=== PATIENT | male | born 1955 | race Caucasian/White ===

== ENCOUNTER 2019-11-20 01:51 | Day surgery (SDC) | payer BC, SELFPAY ==
[2019-11-13 14:16] VITALS: BMI 35.9
[2019-11-20 07:55] VITALS: BP 172/88; PULSE 76; RESP 16; TEMP 37.1; O2SAT 97
--- NOTE | 2019-11-20 07:57 | WPDANESEPPF ---
Anes - Initial Pre Proc Eval Procedure: Operation Date: 11/20/19 09:00 Proposed Procedures p Screening Colonoscopy - Alberto Richards MD Date/Time: 11/20/19 07:57 Surgeon: Alberto Richards MD Pre Op Diagnosis: Neoplasm Screening Patient Data Age: 63 Gender: M Height: 6 ft Weight: 120 kg Allergies Allergy/AdvReac Type Severity Reaction Status Date / Time lisinopril AdvReac Severe Anaphylaxis Verified 11/20/19 07:51 Home Medications Medication Instructions Recorded Confirmed Type aspirin 81 mg tablet,delayed 81 mg PO DAILY 08/06/19 11/20/19 History release blood sugar diagnostic #10 each 08/06/19 11/06/19 History lancets 28 gauge #25 each 08/06/19 11/06/19 History losartan 50 mg tablet 50 mg PO DAILY 08/06/19 11/20/19 History metformin 500 mg tablet 500 mg PO BID #180 tablet 08/06/19 11/20/19 Rx Patient hx anesthesia problems: none Family hx anesthesia problems: none PMFSH Past Medical History Medical History (Updated 11/06/19 @ 07:51 by Shannon Loving NP) Allergies Elevated PSA Hypertension Type 2 diabetes mellitus Family History Family History (Updated 08/05/19 @ 15:48 by Minerva Gloria CMA) Father Malignant neoplasm of prostate Heart attack Social History Social History Smoking status: Former smoker Smoking end date: 09/25/02 Alcohol intake: current Substance use: never Anes - Eval Final PreProcedure Day of Procedure 11/20/19 07:57 Patient weight: obese Heart: regular rate and rhythm Lungs: clear to auscultation Airway: Mallampati scale class II Neurological: alert and oriented Last oral intake: >/= 8 hours ASA classification: III Emergent: no Anesthetic plan: proceed Anesthesia type and monitoring: general GIVS and standard monitoring Informed Consent: The patient's anesthetic plan and its attendant risks and benefits were discussed with the patient/family/POA. Questions were solicited and answers provided to the satisfaction of the patient/family/POA.
[2019-11-20] MEDS: LACTATED RINGERS 1,000 ML 150 ML IV CONT (08:07)
[2019-11-20 08:24] LABS: Glucose Point of Care 128 (65-105)
--- NOTE | 2019-11-20 08:26 | PM.HPGS ---
History of Present Illness History of Present Illness Consent: Risks, benefits, and alternatives have been discussed and questions answered. Patient agrees to proceed with procedure. Chief complaint: Neoplasm Screening Narrative: Cristi Elias is a 63 year old W male referred for screening colonoscopy. Patient's last colonoscopy was over 10 years ago. He had mild diverticular disease. Patient is asymptomatic there is no family history of colon cancer. [facility] Past Medical History Medical History Allergies Elevated PSA Hypertension Type 2 diabetes mellitus Family History Family History Father Malignant neoplasm of prostate Heart attack Social History Social History Smoking status: Former smoker Smoking end date: 09/25/02 Alcohol intake: current Substance use: never Meds Home Medications and Allergies Home Medications Medication Instructions Recorded Confirmed Type aspirin 81 mg tablet,delayed 81 mg PO DAILY 08/06/19 11/20/19 History release blood sugar diagnostic #10 each 08/06/19 11/06/19 History lancets 28 gauge #25 each 08/06/19 11/06/19 History losartan 50 mg tablet 50 mg PO DAILY 08/06/19 11/20/19 History metformin 500 mg tablet 500 mg PO BID #180 tablet 08/06/19 11/20/19 Rx Allergies Allergy/AdvReac Type Severity Reaction Status Date / Time lisinopril AdvReac Severe Anaphylaxis Verified 11/20/19 07:51 Vital Signs Vital Signs - 24 hr 11/20/19 07:55 Temperature 37.1 C Pulse Rate 76 Respiratory Rate 16 Blood Pressure 172/88 H Pulse Oximetry 97 Exam Const: Orientation/consciousness: patient oriented x3 Resp: Auscultation: clear to auscultation bilaterally Cardio: Rate: regular rate Rhythm: regular rhythm Heart sounds: no murmurs GI: GI Palp: Yes Soft to palpation, No Tenderness to palpation present (GI), Yes No hepatosplenomegaly present and No Palpable mass present Auscultation: normal bowel sounds Neuro: General: patient oriented x3 and no focal motor deficits Extrem: General: no pedal edema Assessment and Plan Additional Plan Screening colonoscopy in average risk patient
[2019-11-20 09:00] VITALS: BP 122/69; PULSE 72; RESP 20
[2019-11-20 09:10] VITALS: BP 124/65; PULSE 69; RESP 20; O2SAT 97
[2019-11-20 09:16] VITALS: BP 121/83; PULSE 69; O2SAT 96
[2019-11-20 09:20] VITALS: BP 121/83; PULSE 69; RESP 22
== END 2019-11-20 09:27 | disposition home or self-care (01) ==
PROVIDERS: PCP Internal Medicine; Visit Provider Internal Medicine Gastroenterology
PROC: 0DJD8ZZ Inspection of Lower Intestinal Tract, Via Natural or Artificial Opening Endoscopic (ICD-10-PCS; CPT 45378; principal; 2019-11-20 09:00)
DX: Z12.11 Encounter for screening for malignant neoplasm of colon (principal); K63.5 Polyp of colon; K64.8 Other hemorrhoids; K64.4 Residual hemorrhoidal skin tags; K57.30 Diverticulosis of large intestine without perforation or abscess without bleeding; I10 Essential (primary) hypertension; E11.9 Type 2 diabetes mellitus without complications; Z79.84 Long term (current) use of oral hypoglycemic drugs; Z79.82 Long term (current) use of aspirin; E66.9 Obesity, unspecified; Z68.36 Body mass index [BMI] 36.0-36.9, adult; Z87.891 Personal history of nicotine dependence
CPT/HCPCS: 45385; 88305; J7120

== ENCOUNTER 2022-03-04 17:58 | Emergency (ER) | payer MEDICARE, SELFPAY ==
[2022-03-04 18:01] VITALS: BP 142/93; PULSE 74; RESP 14; TEMP 36; O2SAT 99
--- NOTE | 2022-03-04 19:06 | ED.WOUNDLAC ---
HPI - Wound/Laceration General Chief Complaint: Wound/Laceration Stated Complaint: infection in toe Time Seen by Provider: 03/04/22 18:49 History of Present Illness HPI narrative: 66-year-old male presents the emergency room for evaluation of suspected infection to left third toe. Patient states that he was trimming his toenails 2 days ago, and noticed his toe developed redness, swelling, and pain yesterday. Patient denies fever. Patient states that he is diabetic. Related Data Home Medications Medication Instructions Recorded Confirmed aspirin 81 mg tablet,delayed 81 mg PO DAILY 08/06/19 10/25/21 release (Adult Low Dose Aspirin) blood sugar diagnostic #10 ea 08/06/19 10/25/21 Allergies Allergy/AdvReac Type Severity Reaction Status Date / Time lisinopril AdvReac Severe Anaphylaxis Verified 03/04/22 18:53 Review of Systems Review of Systems: CONSTITUTIONAL: Denies fever, chills, or sweats. EYES: Denies visual changes, redness, or discharge. ENT: Denies rhinorrhea, congestion, sore throat, or otalgia. CARDIOVASCULAR: Denies chest pain, palpitations, or edema. RESPIRATORY: Denies cough or dyspnea. GASTROINTESTINAL: Denies abdominal pain, nausea, vomiting, or diarrhea. GENITOURINARY: Denies dysuria or hematuria. SKIN: Denies rash or itching. MUSCULOSKELETAL: Reports pain to left middle toe NEUROLOGIC: Denies headache, numbness, dizziness, or weakness. PSYCHIATRIC: Denies anxiety or depression. PMFSH Past Medical History Medical History Allergies Elevated PSA Hypertension Normal colonoscopy 10/2019 Type 2 diabetes mellitus Surgical History Surgical History H/O tooth extraction Family History Family History Father Malignant neoplasm of prostate Heart attack Social History Social History Smoking status: Former smoker Smoking end date: 09/25/02 Alcohol intake: current Alcohol use details: Pt drinks occasionally. Substance use: never Exam Narrative: GENERAL: Well-appearing, well-nourished, and in no acute distress. HEAD: Normocephalic, atraumatic. EYES: PERRLA and EOMI. CHEST: Clear to auscultation. No respiratory distress. No wheezes rales or rhonchi HEART: Regular rate and rhythm. No murmur heard. Normal peripheral pulses. ABDOMEN: Soft, nontender, nondistended, normal active bowel sounds. EXTREMITIES: Left third toe: Erythema and swelling noted SKIN: Scant amount of dried blood to the medial nail fold NEURO: No focal deficits. Alert and oriented x3. PSYCH: Normal mood and affect. Course Vital Signs Vital signs: Vital Signs Temperature 36.0 C L 03/04/22 18:01 Pulse Rate 74 03/04/22 18:01 Respiratory Rate 14 03/04/22 18:01 Blood Pressure 142/93 H 03/04/22 18:01 Pulse Oximetry 99 03/04/22 18:01 Oxygen Delivery Room Air 03/04/22 18:01 Temperature 36.0 C L 03/04/22 18:01 Pulse Rate 74 03/04/22 18:01 Respiratory Rate 14 03/04/22 18:01 Blood Pressure 142/93 H 03/04/22 18:01 Pulse Oximetry 99 03/04/22 18:01 Oxygen Delivery Room Air 03/04/22 18:01 Discharge Plan Discharge Clinical Impression: Cellulitis of third toe of left foot Patient Disposition: Home, Self-Care Condition: Stable Instructions: Antibiotic Form, Cellulitis (ED) Prescriptions: New cephalexin 500 mg capsule 500 mg PO Q8H 7 Days Qty: 21 0RF No Action aspirin [Adult Low Dose Aspirin] 81 mg tablet,delayed release (DR/EC) 81 mg PO DAILY (DME) blood sugar diagnostic Strip See Rx Instructions .ROUTE .MEDSUPPLY Qty: 10 Rx Instructions: Use to test blood 2 times every day (DME) lancets [Acti-Tj Lancets] 28 gauge misc See Rx Instructions .ROUTE .MEDSUPPLY Qty: 100 4RF Rx Instructions: Test blood [place]
[2022-03-04] MEDS: CEPHALEXIN 500 MG CAPSULE PO (19:20)
[2022-03-04 19:49] VITALS: BP 136/80; PULSE 72; RESP 16; TEMP 36.3; O2SAT 100
== END 2022-03-04 19:52 | disposition home or self-care (01) ==
PROVIDERS: Emergency Provider Nurse Practitioner Family; PCP Internal Medicine
DX: L03.032 Cellulitis of left toe (principal); Z79.82 Long term (current) use of aspirin; E11.9 Type 2 diabetes mellitus without complications; I10 Essential (primary) hypertension; Z87.891 Personal history of nicotine dependence; Z79.84 Long term (current) use of oral hypoglycemic drugs
CPT/HCPCS: 99283; A9270

== ENCOUNTER 2022-09-18 05:41 | Emergency (ER) | payer MEDICARE, SELFPAY ==
--- NOTE | ~2022-09-18 | CT_ITS ---
EXAMINATION: CT abdomen pelvis w con DATE: 09/18/2022 09:32 INDICATION: Right upper quadrant abdominal pain and epigastric pain with vomiting. TECHNIQUE: Computed tomography (CT) of the abdomen and pelvis was performed with 100 mL Omnipaque-350 intravenous contrast. Automated exposure control and iterative reconstruction technique were employe d. The dose-length product was 1353.20 mGy-cm. COMPARISON: None FINDINGS: Mild bibasilar atelectasis. Heart size is normal. Atherosclerotic coronary artery calcific location. Aortic valve calcific location. No pericardial or pleural effusion. Small sliding-type hiatal hernia. Multiple scattered small hepatic and splenic calcific lesions consistent with old granulomatous dise ase. Subtle haziness to the pericholecystic fat and minimal stranding at the anson hepatis raising co ncern for acute cholecystitis. Pancreas is normal. Small bilateral central lower density bilateral ad renal nodules, larger on the right measuring 1.4 cm which in absence of known history of malignancy a re most consistent with adenomas. Bilateral renal cysts the larger on the left measuring 1.6 cm. Blad piero is normal. Prominent prostatomegaly measuring 7.4 x 5.9 cm. Bilateral fat-containing inguinal her nias. A loop of small bowel extends across the orifice of the right inguinal hernia. No bowel obstruc tion. Normal appendix. Moderate diverticulosis along the proximal sigmoid colon without adjacent infl ammatory stranding to suggest diverticulitis. Small fat-containing left paraumbilical hernia. No free intraperitoneal gas or fluid. No pathologically enlarged abdominal or pelvic lymphadenopathy. Mild t o moderate thoracolumbar spondylosis with bridging osteophytes at multiple levels in the lower thorac ic spine consistent with diffuse idiopathic skeletal hyperostosis (DISH). IMPRESSION: 1. Subtle haziness to the pericholecystic fat and minimal streaky stranding in the anson hepatis susp icious for acute cholecystitis. Correlate for [place] and could consider further evaluation with eithe r right upper quadrant ultrasound or HIDA scan. 2. Moderate sigmoid diverticulosis. 3. Prostatomegaly. 4. Small sliding-type hiatal hernia. 5. Small fat-containing left paraumbilical ventral hernia the lateral and moderate-sized bilateral fa t-containing inguinal hernias. Reviewed, dictated and finalized at location A. ER SUPERIOR IMPRESSION: 1. Subtle haziness to the pericholecystic fat and minimal streaky stranding in the anson hepatis suspicious for acute cholecystitis. Correlate for [place] and could consider further evaluation with either right upper quadrant ultrasound o r HIDA scan. 2. Moderate sigmoid diverticulosis. 3. Prostatomegaly. 4. Small sliding-type hiatal hernia. 5. Small fat-containing left paraumbilical ventral hernia the lateral and moder ate-sized bilateral fat-containing inguinal hernias.
[2022-09-18 05:48] VITALS: BP 187/91; PULSE 63; RESP 16; TEMP 36.2; O2SAT 99
[2022-09-18 08:00] LABS: Basophils Absolute Auto 0.1 K/mm3 (0.0-0.1); Basophils Percent Auto 0.4 % (0.2-1.2); Eosinophils Percent Auto 0.1 % (0-4.4); Hematocrit 45.5 % (42.0-52.0); Hemoglobin 15.2 g/dL (14.0-18.0); Immature Granulocyte Absolute 0.06 K/mm3 (0.00-0.031); Immature Granulocyte Percent A 0.4 % (0-0.5); Lymphocytes Percent Auto 6.7 % (18.3-44.2); Mean Corpuscular HGB Conc 33.4 g/dl (32-36); Mean Corpuscular Hemoglobin 28.4 pg (26-34); Mean Corpuscular Volume 84.9 fl (80-100); Mean Platelet Volume 10.1 fl (7.4-10.4); Monocytes Absolute Auto 0.3 K/mm3 (0.1-0.6); Monocytes Percent Auto 2.5 % (2.6-8.5); Neutrophils Percent Auto 89.9 % (45.5-73.1); Platelet Count Result 189 k/mm3 (150-375); Red Blood Count 5.36 M/mm3 (4.6-6.20); Red Cell Distribution Width 13.2 % (11.5-14.5); White Blood Count 13.4 K/mm3 (4.5-10.0)
[2022-09-18 08:09] LABS: Alanine Aminotransferase 35 U/L (6-50); Albumin Level 5.2 g/dL (3.5-5.1); Alkaline Phosphatase 90 U/L (38-126); Anion Gap 11 mmol/L (8-16); Aspartate Amino Transferase 51 U/L (17-59); Bilirubin,Total 0.7 mg/dL (0.2-1.3); Blood Urea Nitrogen 15 mg/dL (9-20); Calcium 9.4 mg/dL (8.4-10.2); Carbon Dioxide 26 mmol/L (22-30); Chloride 96 mmol/L (98-107); Estimated CRCL calculation 119 ml/min; Estimated Glomerular Filt Rate > 60; Glucose 201 mg/dL (65-110); Lipase 57 U/L (23-300); Potassium 4.4 mmol/L (3.4-5.0); Sodium 133 mmol/L (137-145)
[2022-09-18 08:24] LABS: Add Urine Microscopic? YES; Appearance Urine Clear (Clear); Bilirubin Urine Negative (Negative); Blood Urine 1+ (Negative); Color Urine Light Yellow (Yellow); Glucose Urine UA 1+ mg/dL (Negative); Ketones Urine Trace mg/dL (Negative); Leukocyte Esterase Ur Negative LEU/UL (Negative); Nitrate Urine Negative (Negative); Protein Urine 2+ mg/dL (Negative); Specific Grav Ur 1.025 (1.001-1.035); Urobilinogen Urine 0.2 mg/dL (<2.0)
[2022-09-18 08:32] LABS: Mucus Urine Rare /lpf; WBC Urine 0-3 /hpf
--- NOTE | 2022-09-18 08:44 | ED.ABDPAIN ---
HPI - Abdominal Pain General Chief Complaint: Abdominal Pain Stated Complaint: epigastric pain, N/V Time Seen by Provider: 09/18/22 07:54 History of Present Illness HPI narrative: Patient is a 66-year-old male with a history of hypertension, diabetes presenting with abdominal pain. Patient states that he awoke around midnight with severe right-sided and epigastric abdominal pain. Shortly after he began vomiting and states that he was vomiting for several hours. States that he continues to have pain and waves of nausea. He has never had a similar episode. He denies fevers or chills, chest pain, shortness of breath, cough, constipation, dysuria, hematuria. States he had an episode of diarrhea last night but he had a normal bowel movement this morning. Related Data Home Medications Medication Instructions Recorded Confirmed aspirin 81 mg tablet,delayed 81 mg PO DAILY 08/06/19 03/31/22 release (Adult Low Dose Aspirin) blood sugar diagnostic #10 ea 08/06/19 03/31/22 Allergies Allergy/AdvReac Type Severity Reaction Status Date / Time lisinopril AdvReac Severe Anaphylaxis Verified 03/31/22 08:46 Review of Systems Review of Systems: All systems reviewed & are unremarkable except as noted in HPI and below PMFSH Past Medical History Medical History Allergies Elevated PSA Hypertension Normal colonoscopy 10/2019 Obesity Type 2 diabetes mellitus Surgical History Surgical History H/O tooth extraction Family History Family History Father Malignant neoplasm of prostate Heart attack Social History Social History Smoking status: Former smoker Smoking end date: 09/25/02 Alcohol intake: current Alcohol use details: Pt drinks occasionally. Substance use: never Exam Narrative: GENERAL: Well-appearing, well-nourished, and in no acute distress. HEAD: Normocephalic, atraumatic. EYES: PERRLA and EOMI. ENT: Nares clear, no rhinorrhea or epistaxis. Mucous membranes moist. NECK: Supple. CHEST: Clear to auscultation. No respiratory distress. HEART: Regular rate and rhythm. No murmur heard. Normal peripheral pulses. ABDOMEN: Soft, epigastric and right upper quadrant tenderness, no guarding or rebound, nondistended, normal active bowel sounds. EXTREMITIES: Normal range of motion. No edema. SKIN: Warm, dry, no rash. NEURO: No focal deficits. Alert and oriented x3. PSYCH: Normal mood and affect. Course Vital Signs Vital signs: Vital Signs Temperature 97.2 F L 09/18/22 05:48 Pulse Rate 63 09/18/22 05:48 Respiratory Rate 16 09/18/22 05:48 Blood Pressure 187/91 H 09/18/22 05:48 Pulse Oximetry 99 09/18/22 05:48 Oxygen Delivery Room Air 09/18/22 05:48 Temperature 97.2 F L 09/18/22 05:48 Pulse Rate 82 09/18/22 14:48 Respiratory Rate 12 09/18/22 14:48 Blood Pressure 132/86 09/18/22 14:48 Pulse Oximetry 98 09/18/22 14:48 Oxygen Delivery Room Air 09/18/22 05:48 MDM - Abdominal Pain MDM Narrative Medical decision making narrative: Patient is a 66-year-old male presenting with abdominal pain and vomiting. Patient is hypertensive, otherwise vitals are within normal limits. Exam is remarkable for the above. Blood work with mild leukocytosis of 13.4. LFTs are normal. CT abdomen pelvis is equivocal for cholecystitis. There is some mild streaking haziness around the gallbladder concerning for acute cholecystitis. Unfortunately, today is Monday so we do not have ultrasound. On reevaluation, the patient states that his pain has significantly improved and his nausea has disappeared. He is tolerating p.o. intake at this time. I spoke with Dr. Jimenez who recommends if the patient's symptoms are improved and he feels comfortable going home
[2022-09-18] MEDS: ONDANSETRON INJ 4 MG/2 ML VIAL IV PUSH (08:57)
[2022-09-18] MEDS: MORPHINE SULFATE (*CRX) 4 MG/ML INJ IV PUSH (08:57)
[2022-09-18] MEDS: SODIUM CHLORIDE 0.9% IV 1,000 ML 999 ML IV CONT (08:58)
[2022-09-18 10:14] VITALS: BP 182/88; PULSE 96; RESP 18; O2SAT 97
--- NOTE | 2022-09-18 12:59 | PC.NURSE ---
pt asking about delay in care. updated that US not here today, provider awaiting call from surgery provider to speak to pt
[2022-09-18] MEDS: metroNIDAZOLE 250 MG TABLET 500 MG PO (14:33)
[2022-09-18] MEDS: CEPHALEXIN 500 MG CAPSULE PO (14:34)
[2022-09-18 14:48] VITALS: BP 132/86; PULSE 82; RESP 12; O2SAT 98
== END 2022-09-18 14:59 | disposition home or self-care (01) ==
PROVIDERS: Emergency Provider Emergency Medicine; PCP Internal Medicine
DX: R11.2 Nausea with vomiting, unspecified (principal); R10.11 Right upper quadrant pain; K57.90 Diverticulosis of intestine, part unspecified, without perforation or abscess without bleeding; I10 Essential (primary) hypertension; E11.9 Type 2 diabetes mellitus without complications
CPT/HCPCS: 36415; 74177; 80053; 81001; 83690; 85025; 96361; 96365; 96375; 99284; A9270; J0131; J2270; J2405; J7030; Q9967

== ENCOUNTER → 2022-09-21 08:35 | Outpatient (CLI) | payer MEDICARE, SELFPAY ==
--- NOTE | ~2022-09-21 | US_ITS ---
EXAMINATION: US right upper quadrant DATE: 09/21/2022 09:18 INDICATION: Right upper quadrant pain TECHNIQUE: Multiple grayscale and Doppler ultrasound images of the abdomen were obtained. COMPARISON: CT, 09/18/2021 FINDINGS: The head and body of the pancreas are normal. The pancreatic tail is obscured by bowel gas. The liver is normal with normal echogenicity and echotexture. No surface nodularity. Normal hepatope jose antonio flow in the main portal vein. There are multiple stones in the gallbladder. The gallbladder wall thickness measures 5 mm. The normal common bile duct measures 3 mm. There was no sonographic Cary s ign. IMPRESSION: 1. Cholelithiasis and mild gallbladder wall thickening which could reflect acute cholecystitis. Consi piero nuclear hepatobiliary scan. Reviewed, dictated and finalized at location B. EAR [employer]IC[employer] CHIEF TECHNOLOGIST IMPRESSION: 1. Cholelithiasis and mild gallbladder wall thickening which could reflect acut e cholecystitis. Consider nuclear hepatobiliary scan.
== END ==
PROVIDERS: PCP Surgery; Visit Provider Surgery
DX: K80.20 Calculus of gallbladder without cholecystitis without obstruction (principal)
CPT/HCPCS: 76705

== ENCOUNTER 2022-10-18 08:19 | Outpatient (CLI) | payer MEDICARE, SELFPAY ==
--- NOTE | 2022-10-18 09:10 | ECG_ITS ---
Measurements Intervals [place] Rate: 65 P: 39 MA: 159 QRS: 1 QRSD: 101 T: 72 QT: 403 QTc: 419 Interpretive Statements SINUS RHYTHM ATRIAL PREMATURE COMPLEX EARLY PRECORDIAL R/S TRANSITION LEFT VENTRICULAR HYPERTROPHY WITH ST-T CHANGE BORDERLINE ECG NO PREVIOUS ECG AVAILABLE FOR COMPARISON Electronically Signed On 10-18-2022 10:16:52 CORE CUTTER by Alexis Clark D.O.
[2022-10-18 09:34] LABS: Amylase 71 U/L (30-110)
== END 2022-10-18 08:20 | disposition home or self-care (01) ==
PROVIDERS: PCP Internal Medicine; Visit Provider Surgery
DX: Z01.812 Encounter for preprocedural laboratory examination (principal); Z01.810 Encounter for preprocedural cardiovascular examination; K80.00 Calculus of gallbladder with acute cholecystitis without obstruction; E11.9 Type 2 diabetes mellitus without complications; I51.7 Cardiomegaly
CPT/HCPCS: 36415; 82150; 86850; 86900; 86901; 93005

== ENCOUNTER 2022-10-24 00:45 | Day surgery (SDC) | payer MEDICARE, SELFPAY ==
--- NOTE | 2022-10-17 13:32 | PC.NURSE ---
Report to the Outpatient Waiting Room, entrance under the green pavilion located off [facility], at time _1130 on date _10/24/22 . Planned Procedure Time: 1330 . Time changes happen often and if your time is changed the preop area will call you the afternoon before. - You and your visitor will be asked to self-screen and do not enter if you have any COVID symptoms. - Only one visitor is requested with a max of two and NO children visitors are allowed at this time. - The patient visitor may be requested to leave or wait in car when not with patient due to distancing restrictions. - A mask is optional within the hospital. Patients may have clear liquids (water, carbonated beverages, clear teas, apple juice) until 3 hours prior to surgery with a maximum of 20 ounces. - No food from midnight until time of surgery - Infants may have breast milk until 4 hours before surgery, infant formula 6 hours prior to surgery. - Children will be allowed to drink immediately following surgery. If applicable, please bring a bottle or sippy cup to assist with drinking. Juice, water, soda, and popsicles are readily available. For infants on formula, please bring formula the day of surgery. Pacifiers are allowed. Take the following medications with a SIP of water the morning of surgery: NONE Medications to discontinue per physician ____ALL VITAMINS AND SUPPLEMENTS 3 DAYS PRE OP LAST DOSE 10/20/22 HIBICLENS SHOWER MORNING OF SURGERY Please no make-up, nail tamazight, hairspray, perfume, deodorant, or body powder the day of surgery. No jewelry (including any body piercings) or valuables the day of surgery, leave them at home. Please take a shower or bath the night before, or the morning of, surgery with an antibacterial soap. Wear comfortable, loose fitting clothing. Children are encouraged to wear pajamas. - Jewelry must be removed prior to entering the operating room. Rings and piercings that are not removed may be cut off. - The hospital will not accept responsibility for valuables. - Please leave all valuables, including medications, at home the day of surgery. If you are going home after surgery, a licensed train driver must drive you home. - NO public transportation without another adult if you receive anesthesia. - We recommend that an adult stay with you for 24 hours following discharge. - We also recommend that you do not drive, make important decision, drink alcoholic beverages, or take any drugs that were not prescribed by your health care provider for at least 24 hours after your discharge time. Follow any additional instructions given to you from your surgeon. If you or anyone in your household have experienced Covid symptoms in the past week, please notify your surgeon or the nurse liaison at the phone number below for possible testing. Telephone instructions given to __PATIENT and asked if any additional questions and then verbalized understanding. Patient advised to call surgeon office or pre surgery nurse liaison [phone] if any additional questions.
[2022-10-17 13:38] VITALS: BMI 33.3
[2022-10-24] VITALS (8 sets, daily range): BP systolic 128–185; BP diastolic 64–75; PULSE 51–67; RESP 12–18; TEMP 36.8; O2SAT 93–100
--- NOTE | 2022-10-24 11:37 | WPDHPUPDATE1 ---
History and Physical Update Update Date/Time: 10/24/22 11:37 History and Physical has been reviewed, including an updated exam of the patient. There are NO changes in the patient's condition. Risks, benefits, and alternatives have been discussed and questions answered. Patient agrees to proceed with procedure.
--- NOTE | 2022-10-24 11:38 | PM.IMHP ---
H&P: HPI History of Present Illness Date/Time: 10/24/22 11:38 Chief Complaint: Acute cholecystitis, umbilical hernia Narrative: 66 yo man presents for robotic cholecystectomy and umbilical hernia repair. He denies any changes since last seen in office. Review of Systems Review of Systems: All systems reviewed & are unremarkable except as noted in HPI and below Constitutional: Constitutional: Denies chills, Denies fever(s), Denies headache(s) and Denies weight loss Eyes: Eyes: Denies change in vision ENT: Denies dizziness, Denies headache(s), Denies neck mass and Denies throat swelling Cardiovascular: Cardiovascular: Denies chest pain, Denies lightheadedness and Denies dyspnea Respiratory: Respiratory: Denies cough, Denies dyspnea and Denies wheezing Gastrointestinal: Gastrointestinal: Denies abdominal pain, Denies change in bowel habits, Denies nausea and Denies vomiting Genitourinary: Genitourinary: Denies hematuria and Denies dysuria Musculoskeletal: Musculoskeletal: Reports as per HPI Integumentary/Breasts: Skin/Breast: Reports as per HPI Neurologic: Denies dizziness and Denies headache(s) Allergic/Immunologic: Allergic/Immunologic: Denies throat swelling and Denies wheezing PMF Past Medical History Medical History Allergies Elevated PSA Hypertension Normal colonoscopy 10/2019 Obesity Type 2 diabetes mellitus Surgical History Surgical History H/O tooth extraction Family History Family History Father Malignant neoplasm of prostate Heart attack Social History Social History (Updated 09/28/22 @ 08:07 by Daniela Koroma CMA) Smoking packs per day: 2 Smoking cigarettes per day: 40.0 Years smoked: 20 Smoking pack-years: 40.00 Smoking status: Former smoker Tobacco type: cigarettes Smoking end date: 09/25/00 Alcohol intake: current Alcohol use details: Pt drinks occasionally. Substance use: never Lack of Transportation: No Lack of Food: Never True Current Housing: I Have Housing Concerned About Future Housing: No Difficulty Paying Gas/Electric Bills: No Difficulty Paying for Meds: No Currently Unemployed: No Education: High School Diploma/GED Difficulty w/ Childcare or Family Care: No Living arrangements: with family Spiritual care concerns: No Meds Home Medications and Allergies Home Medications Medication Instructions Recorded Confirmed Type aspirin 81 mg tablet,delayed 81 mg PO DAILY 08/06/19 10/17/22 History release (Adult Low Dose Aspirin) blood sugar diagnostic #10 ea 08/06/19 09/28/22 History lancets 28 gauge (Acti-Tj #100 ea 10/12/20 09/28/22 Rx Lancets) blood sugar diagnostic #100 ea 11/23/21 09/28/22 Rx losartan 50 mg tablet 50 mg PO DAILY #90 tabs 12/29/21 10/17/22 Rx metformin 500 mg tablet See Rx Instructions .Route 03/22/22 10/17/22 Rx .COMPLEX #90 tabs blood sugar diagnostic (OneTouch #100 strips 05/16/22 09/28/22 Rx Ultra Test strips) ondansetron 4 mg disintegrating 4 mg PO Q8H PRN nausea and 09/18/22 10/17/22 Rx tablet vomiting #20 tabs clobetasol 0.05 % topical cream 1 applic topical DAILY #30 grams 09/28/22 10/17/22 Rx ezetimibe 10 mg tablet (Zetia) 10 mg PO DAILY #90 tabs 09/28/22 10/17/22 Rx ascorbic acid (vitamin C) 500 mg 500 mg PO DAILY 10/17/22 10/17/22 History tablet multivitamin (Daily Multi-Vitamin 1 tablet PO DAILY 10/17/22 10/17/22 History tablet) terbinafine HCl 250 mg tablet 250 mg PO DAILY 10/17/22 10/17/22 History zinc 50 mg tablet 50 mg PO DAILY 10/17/22 10/17/22 History Allergies Allergy/AdvReac Type Severity Reaction Status Date / Time lisinopril Allergy Severe Anaphylaxis Verified 10/24/22 09:22 Exam Const: General: no acute distress and alert Orientation/consciousness: patient oriented x3 HE
[2022-10-24] MEDS: ACETAMINOPHEN 500 MG TABLET 1000 MG PO (11:56)
[2022-10-24] MEDS: INDOCYANINE GREEN 25 MG VIAL 3.75 MG IV PUSH (12:23)
[2022-10-24] MEDS: LACTATED RINGERS 1,000 ML 30 ML IV CONT ×2 (12:23→16:35)
[2022-10-24] MEDS: KETOROLAC 15 MG/ML VIAL (*BKC) IV PUSH (12:23)
[2022-10-24 12:31] LABS: Glucose Point of Care 82 mg/dl (65-105)
--- NOTE | 2022-10-24 12:45 | WPDANESEPPF ---
Anes - Initial Pre Proc Eval Procedure: Operation Date: 10/24/22 13:30 Proposed Procedures p Robotic Assisted Cholecystectomy - Yobany Jimenez DO s Open Umbilical Hernia Repair, Possible Mesh - Yobany Jimenez DO Date/Time: 10/24/22 12:45 Surgeon: Yobany Jimenez DO Pre Op Diagnosis: acute calculus cholecystitis, umbilical hernia Patient Data Age: 66 Gender: M Height: 1.83 m Weight: 109.3 kg Last Vital Signs Temp 36.8 C 10/24/22 12:41 Pulse 57 L 10/24/22 12:41 Resp 16 10/24/22 12:41 BP 128/64 10/24/22 12:41 Pulse Ox 93 10/24/22 12:41 O2 Del Method Room Air 10/24/22 12:41 Allergies Allergy/AdvReac Type Severity Reaction Status Date / Time lisinopril Allergy Severe Anaphylaxis Verified 10/24/22 11:49 Home Medications Medication Instructions Recorded Confirmed Type aspirin 81 mg tablet,delayed 81 mg PO DAILY 08/06/19 10/17/22 History release (Adult Low Dose Aspirin) blood sugar diagnostic #10 ea 08/06/19 09/28/22 History lancets 28 gauge (Acti-Tj #100 ea 10/12/20 09/28/22 Rx Lancets) blood sugar diagnostic #100 ea 11/23/21 09/28/22 Rx losartan 50 mg tablet 50 mg PO DAILY #90 tabs 12/29/21 10/17/22 Rx metformin 500 mg tablet See Rx Instructions .Route 03/22/22 10/17/22 Rx .COMPLEX #90 tabs blood sugar diagnostic (OneTouch #100 strips 05/16/22 09/28/22 Rx Ultra Test strips) ondansetron 4 mg disintegrating 4 mg PO Q8H PRN nausea and 09/18/22 10/17/22 Rx tablet vomiting #20 tabs clobetasol 0.05 % topical cream 1 applic topical DAILY #30 grams 09/28/22 10/17/22 Rx ezetimibe 10 mg tablet (Zetia) 10 mg PO DAILY #90 tabs 09/28/22 10/17/22 Rx ascorbic acid (vitamin C) 500 mg 500 mg PO DAILY 10/17/22 10/17/22 History tablet multivitamin (Daily Multi-Vitamin 1 tablet PO DAILY 10/17/22 10/17/22 History tablet) terbinafine HCl 250 mg tablet 250 mg PO DAILY 10/17/22 10/17/22 History zinc 50 mg tablet 50 mg PO DAILY 10/17/22 10/17/22 History Laboratory Tests 10/24/22 12:28 POC Capillary Glucose 82 mg/dl mg/dl (65-105) Patient hx anesthesia problems: none Family hx anesthesia problems: none Results Review: All pre-operative results and documents have been reviewed as part of the pre-operative evaluation. [facility] Past Medical History Medical History Allergies Elevated PSA Hypertension Normal colonoscopy 10/2019 Obesity Type 2 diabetes mellitus Surgical History Surgical History H/O tooth extraction Family History Family History Father Malignant neoplasm of prostate Heart attack Social History Social History Smoking packs per day: 2 Smoking cigarettes per day: 40.0 Years smoked: 20 Smoking pack-years: 40.00 Smoking status: Former smoker Tobacco type: cigarettes Smoking end date: 09/25/00 Alcohol intake: current Alcohol use details: Pt drinks occasionally. Substance use: never Lack of Transportation: No Lack of Food: Never True Current Housing: I Have Housing Concerned About Future Housing: No Difficulty Paying Gas/Electric Bills: No Difficulty Paying for Meds: No Currently Unemployed: No Education: High School Diploma/GED Difficulty w/ Childcare or Family Care: No Living arrangements: with family Spiritual care concerns: No Anes - Eval Final PreProcedure Day of Procedure 10/24/22 12:45 Patient weight: obese Heart: regular rate and rhythm Lungs: clear to auscultation Airway: Mallampati scale class II and special considerations poor dentition Neurological: alert and oriented Last oral intake: >/= 8 hours ASA classification: III Emergent: no Anesthetic plan: proceed Anesthesia type and monitoring: general ETT Results Review: All pre-operative results an
--- NOTE | 2022-10-24 13:32 | SUR.PREOP ---
Discussed delay with patient and . Voiced understanding.
[2022-10-24] MEDS: ceFAZolin 2 GM/D5W 50 ML 2 GM/50 ML BAG IVPB (15:06)
[2022-10-24] MEDS: BUPIVACAINE/EPINEPHRINE 0.5% 30 ML VIAL INFILTRATE (15:17)
--- NOTE | 2022-10-24 16:21 | W.PM.PROC2 ---
Procedure Note - Detailed Date of Procedure 10/24/22 Pre-op Diagnosis acute calculus cholecystitis, umbilical hernia Post-op Diagnosis Same Procedure Performed 1. Laparoscopic cholecystectomy 2. Open 1.5 cm umbilical hernia repair Surgeon Yobany Jimenez, DO Anesthesia General and Local (0.5% bupivacaine) Indications This is a 66-year-old man who presented with right upper quadrant pain that started about 1 month ago. He presented to the emergency department on 09/[address] showed evidence of acute calculous cholecystitis. He had a follow-up gallbladder ultrasound at [facility] which confirmed gallbladder wall thickening and cholelithiasis. He was then seen in the office in follow-up and discussions were made with the patient about treatment options and decision was made to proceed with laparoscopic cholecystectomy, possible open. Patient also had an umbilical hernia and decision was made to proceed with repair of umbilical hernia at the same time. Findings Laparoscopic cholecystectomy was performed. The gallbladder appeared tense and dilated with gallbladder thickening. There were a few pericholecystic adhesions as well. Gallbladder was completely full of small to medium size gallstones. The cystic duct appeared to taper down to normal size. The gallbladder was removed and sent to the lab for pathology. There was some minor bleeding along the gallbladder fossa. Decision was made to spray Surgiflo within the gallbladder fossa to help with hemostasis. After completing the laparoscopic cholecystectomy, I then moved my attention to the umbilical hernia. The fascia was cleared around the umbilical hernia defect and the hernia measured about 1.5 cm. The fascial edges were closed using 0 Ethibond [id number] sutures decision was made not to place mesh due to the residual gallbladder inflammation. Description of Procedure Procedure as well as risks, benefits, and alternatives were discussed with patient. Written consent was obtained and placed in chart prior to procedure. The patient was brought back to surgical suite. Patient was placed in supine position on operating table. Time-out was done to confirm patient and procedure. Patient was then intubated by the anesthesia department. Abdomen was prepped and draped in sterile fashion using chlorhexidine prep. 0.5% bupivacaine with epinephrine was infiltrated at each site of incision. The 2 cm curvilinear incision was made just superior to the umbilicus using a 15 blade scalpel. Electrocautery was used for hemostasis and for dissection around the hernia sac. The hernia sac was then excised using electrocautery. An 11 millimeter trocar was inserted directly through the hernia defect and carbon dioxide insufflation was used to create a pneumoperitoneum. The camera was inserted and the abdomen was inspected. The patient was placed in reverse Trendelenberg position and rotated slightly to the left. A 5 millimeter incision was made in the epigastric region, and a 5 millimeter trocar was inserted under direct visualization. Two 5 millimeter incisions were made in the right upper quadrant, and two 5 millimeter trocars were inserted under direct visualization. The gallbladder was identified and grasped at the fundus and retracted superiorly. It was then grasped at the infundibulum retracted laterally. Careful dissection around the neck of the gallbladder was performed using blunt dissection with a [place] grasper and hook electrocautery. The cystic duct was identified, and a window was created behind it. The cystic artery was also identified and a window was created behind it. The critical view of safety was identified, visualizing the cystic duct running directly into the neck of the gallbladder, and the cystic artery running directly into the wall of the gallbladder. A 5 millimeter clip managing consultant was then used to place 2 clips proximally and 1 clip distally on both the cystic duct and cystic
[2022-10-24] MEDS: fentaNYL CITRATE INJ (*CRX) 100 MCG/2 ML VIAL 25 MCG IV PUSH ×2 (16:49→16:54)
[2022-10-24 16:50] LABS: Glucose Point of Care 137 mg/dl (65-105)
--- NOTE | 2022-10-24 16:58 | SUR.PHASEI ---
Spoke with vocational placement specialist FRANCISCO JAVIER Perry regarding patient's BP reading of 175/71. No new orders at this time.
[2022-10-24] MEDS: oxyCODONE HCL (*CRX) 5 MG TAB IR PO (17:50)
== END 2022-10-24 18:37 | disposition home or self-care (01) ==
PROVIDERS: PCP Internal Medicine; Visit Provider Surgery
PROC: 0FT44ZZ Resection of Gallbladder, Percutaneous Endoscopic Approach (ICD-10-PCS; CPT 47562; principal; 2022-10-24 13:30)
PROC: (CPT 47562; 2022-10-24 13:30)
DX: K80.00 Calculus of gallbladder with acute cholecystitis without obstruction (principal); K42.9 Umbilical hernia without obstruction or gangrene; I10 Essential (primary) hypertension; E11.9 Type 2 diabetes mellitus without complications; E66.9 Obesity, unspecified; Z68.32 Body mass index [BMI] 32.0-32.9, adult; Z87.891 Personal history of nicotine dependence; Z79.82 Long term (current) use of aspirin; Z79.84 Long term (current) use of oral hypoglycemic drugs
CPT/HCPCS: 47562; 36415; 82150; 82948; 86850; 86900; 86901; 88304; 93005; A9270; J0690; J1100; J1885; J2250; J2405; J2704; J3010; J7030; J7120

== ENCOUNTER 2023-04-03 08:34 | Outpatient (CLI) | payer MEDICARE, SELFPAY ==
[2023-04-03 11:45] LABS: Kit Draw Collected
== END 2023-04-03 08:35 | disposition home or self-care (01) ==
LOC: ANHGOSHLAB 08:35
PROVIDERS: PCP Internal Medicine; Visit Provider Clinical Nurse Specialist
DX: D72.829 Elevated white blood cell count, unspecified (principal)
CPT/HCPCS: 36415

== ENCOUNTER 2023-04-17 08:21 | Day surgery (SDC) | payer MEDICARE, SELFPAY ==
[2023-03-10 10:02] VITALS: BMI 34.4
[2023-04-03 07:40] VITALS: BMI 34.4
--- NOTE | 2023-04-14 16:51 | PM.HPGS ---
History of Present Illness History of Present Illness Consent: Risks, benefits, and alternatives have been discussed and questions answered. Patient agrees to proceed with procedure. Chief complaint: History of Colon Polyps Narrative: Cristi Elias is a 67 year old male Referred for colon cancer screening. He had 2 polyps removed about 3 years ago. Review of Systems Review of Systems: All systems reviewed & are unremarkable except as noted in HPI and below PMFSH Past Medical History Medical History Allergies Elevated PSA Hypertension Normal colonoscopy 10/2019 Obesity Type 2 diabetes mellitus Surgical History Surgical History H/O tooth extraction Hx laparoscopic cholecystectomy Lap bhargavi and open umb hernia repair 10/24/22. Family History Family History Father Malignant neoplasm of prostate Heart attack Social History Social History Smoking packs per day: 2 Smoking cigarettes per day: 40.0 Years smoked: 20 Smoking pack-years: 40.00 Smoking status: Former smoker Tobacco type: cigarettes Smoking end date: 09/25/00 Alcohol intake: unknown Alcohol use details: Pt drinks occasionally. Substance use: never Substance use type: does not use Lack of Transportation: No Lack of Food: Never True Current Housing: I Have Housing Concerned About Future Housing: No Difficulty Paying Gas/Electric Bills: No Difficulty Paying for Meds: No Currently Unemployed: No Education: High School Diploma/GED Difficulty w/ Childcare or Family Care: No Living arrangements: with family Spiritual care concerns: No Meds Home Medications and Allergies Home Medications Medication Instructions Recorded Confirmed Type aspirin 81 mg tablet,delayed 81 mg PO DAILY 08/06/19 04/17/23 History release (Adult Low Dose Aspirin) blood sugar diagnostic #10 ea 08/06/19 04/17/23 History blood sugar diagnostic #100 ea 11/23/21 04/17/23 Rx blood sugar diagnostic (OneTouch #100 strips 05/16/22 04/17/23 Rx Ultra Test strips) ascorbic acid (vitamin C) 500 mg 500 mg PO DAILY 10/17/22 04/17/23 History tablet multivitamin (Daily Multi-Vitamin 1 tablet PO DAILY 10/17/22 04/17/23 History tablet) zinc 50 mg tablet 50 mg PO DAILY 10/17/22 04/17/23 History lancets 28 gauge (Acti-Tj #100 ea 02/03/23 04/17/23 Rx Lancets) metformin 500 mg tablet See Rx Instructions .Route 03/03/23 04/17/23 Rx .COMPLEX #90 tabs ezetimibe 10 mg tablet (Zetia) 10 mg PO DAILY #90 tabs 04/03/23 04/17/23 Rx losartan 50 mg tablet 50 mg PO DAILY #90 tabs 04/03/23 04/17/23 Rx Allergies Allergy/AdvReac Type Severity Reaction Status Date / Time lisinopril Allergy Severe Anaphylaxis Verified 04/17/23 08:37 Exam Const: General: alert Orientation/consciousness: patient oriented x3 Resp: Auscultation: clear to auscultation bilaterally Cardio: Rhythm: regular rhythm GI: GI Palp: Yes Soft to palpation and No Tenderness to palpation present (GI) Neuro: General: patient oriented x3 Assessment and Plan Assessment and plan (1) Colon cancer screening: Code(s): Z12.11 - Encounter for screening for malignant neoplasm of colon Status: Acute Assessment and Plan: Colonoscopy with possible biopsy or polypectomy or cautery or injection of substances.
--- NOTE | 2023-04-17 06:57 | WPDANESEPPF ---
Anes - Initial Pre Proc Eval Procedure: Operation Date: 04/17/23 10:00 Proposed Procedures p Diagnostic Colonoscopy - Finn Waddell MD Date/Time: 04/17/23 06:57 Surgeon: Finn Waddell MD Pre Op Diagnosis: History of Colon Polyps Patient Data Age: 67 Gender: M Height: 1.83 m Weight: 115 kg Allergies Allergy/AdvReac Type Severity Reaction Status Date / Time lisinopril Allergy Severe Anaphylaxis Verified 04/17/23 08:37 Home Medications Medication Instructions Recorded Confirmed Type aspirin 81 mg tablet,delayed 81 mg PO DAILY 08/06/19 04/17/23 History release (Adult Low Dose Aspirin) blood sugar diagnostic #10 ea 08/06/19 04/17/23 History blood sugar diagnostic #100 ea 11/23/21 04/17/23 Rx blood sugar diagnostic (OneTouch #100 strips 05/16/22 04/17/23 Rx Ultra Test strips) ascorbic acid (vitamin C) 500 mg 500 mg PO DAILY 10/17/22 04/17/23 History tablet multivitamin (Daily Multi-Vitamin 1 tablet PO DAILY 10/17/22 04/17/23 History tablet) zinc 50 mg tablet 50 mg PO DAILY 10/17/22 04/17/23 History lancets 28 gauge (Acti-Tj #100 ea 02/03/23 04/17/23 Rx Lancets) metformin 500 mg tablet See Rx Instructions .Route 03/03/23 04/17/23 Rx .COMPLEX #90 tabs ezetimibe 10 mg tablet (Zetia) 10 mg PO DAILY #90 tabs 04/03/23 04/17/23 Rx losartan 50 mg tablet 50 mg PO DAILY #90 tabs 04/03/23 04/17/23 Rx Patient hx anesthesia problems: none Family hx anesthesia problems: none Results Review: All pre-operative results and documents have been reviewed as part of the pre-operative evaluation. [facility] Past Medical History Medical History Allergies Elevated PSA Hypertension Normal colonoscopy 10/2019 Obesity Type 2 diabetes mellitus Surgical History Surgical History H/O tooth extraction Hx laparoscopic cholecystectomy Lap bhargavi and open umb hernia repair 1/30/23. Family History Family History Father Malignant neoplasm of prostate Heart attack Social History Social History Smoking packs per day: 2 Smoking cigarettes per day: 40.0 Years smoked: 20 Smoking pack-years: 40.00 Smoking status: Former smoker Tobacco type: cigarettes Smoking end date: 09/25/00 Alcohol intake: unknown Alcohol use details: Pt drinks occasionally. Substance use: never Substance use type: does not use Lack of Transportation: No Lack of Food: Never True Current Housing: I Have Housing Concerned About Future Housing: No Difficulty Paying Gas/Electric Bills: No Difficulty Paying for Meds: No Currently Unemployed: No Education: High School Diploma/GED Difficulty w/ Childcare or Family Care: No Living arrangements: with family Spiritual care concerns: No Anes - Eval Final PreProcedure Day of Procedure 04/17/23 06:57 Patient weight: obese Heart: regular rate and rhythm Lungs: clear to auscultation Airway: Mallampati scale class II Neurological: alert and oriented Last oral intake: >/= 8 hours ASA classification: III Emergent: no Anesthetic plan: proceed Anesthesia type and monitoring: general GIVS and standard monitoring Results Review: All pre-operative results and documents have been reviewed as part of the pre-operative evaluation. Informed Consent: The patient's anesthetic plan and its attendant risks and benefits were discussed with the patient/family/POA. Questions were solicited and answers provided to the satisfaction of the patient/family/POA.
[2023-04-17 08:39] VITALS: BP 139/75; PULSE 70; RESP 16; TEMP 36.8; O2SAT 99
[2023-04-17 09:01] LABS: Glucose Point of Care 144 mg/dl (65-105)
[2023-04-17] MEDS: LACTATED RINGERS 1,000 ML 150 ML IV CONT (09:36)
[2023-04-17 09:54] VITALS: BP 102/53; PULSE 70; RESP 18; O2SAT 95
[2023-04-17 10:04] VITALS: BP 116/56; PULSE 79; RESP 20; O2SAT 99
[2023-04-17 10:14] VITALS: BP 123/70; PULSE 77; RESP 20; O2SAT 99
--- NOTE | 2023-04-17 12:05 | WPDANESPN ---
Anes - Prog Note Post-Op Date/Time: 04/17/23 12:05 Cardiovascular status: normal Respiratory status: normal Airway patency: baseline Mental status: baseline Post-Op hydration status: normal Vital Signs: Last Vital Signs Temp 36.8 C 04/17/23 08:39 Pulse 77 04/17/23 10:14 Resp 20 04/17/23 10:14 BP 123/70 04/17/23 10:14 Pulse Ox 99 04/17/23 10:14 O2 Del Method Room Air 04/17/23 10:14 Pain Score (VAS): 0 I/O: Intake & Output 04/16/23 04/17/23 04/17/23 23:59 07:59 15:59 Intake Total 350 Balance 350 04/17/23 08:50 POC Capillary Glucose 144 H Post-procedural complaints: none Patient Feedback: Patient satisfied with anesthetic care. Other Findings: Patient vital signs back to baseline. Patient denies nausea and vomiting. Patient's pain under control. Patient OK for discharge.
== END 2023-04-17 10:35 | disposition home or self-care (01) ==
PROVIDERS: PCP Internal Medicine; Visit Provider Internal Medicine Gastroenterology
PROC: 0DJD8ZZ Inspection of Lower Intestinal Tract, Via Natural or Artificial Opening Endoscopic (ICD-10-PCS; CPT 45378; principal; 2023-04-17 10:00)
DX: Z12.11 Encounter for screening for malignant neoplasm of colon (principal)
CPT/HCPCS: 45378

== ENCOUNTER 2023-08-30 17:42 | Emergency (ER) | payer MEDICARE, SELFPAY ==
--- NOTE | ~2023-08-30 | CT_ITS ---
EXAMINATION: CT facial & cervical spine wo DATE: 08/30/2023 22:33 INDICATION: head injury TECHNIQUE: Computed tomography (CT) of the maxillofacial region and cervical spine was performed with out intravenous contrast. Automated exposure control and iterative reconstruction technique were empl oyed. The dose-length product was 532.24 mGy-cm. COMPARISON: None FINDINGS: CERVICAL: Vertebral Body Alignment: Intact. Craniocervical and atlantoaxial alignment: Moderate degenerative change. Alignment intact. Osseous structures/fracture: No evidence of a lytic or blastic process in the visualized spine. No e vidence of acute fracture. Cervical soft tissues: The paraspinal soft tissues planes are maintained. Degenerative changes: Degenerative changes, without severe neural foraminal or central canal narrowin g. FACE: Soft Tissues: Soft tissue swelling over the left forehead and nose. Facial bones: Comminuted, mildly depressed fractures of the nasal bones. No lytic or blastic process . Eyes: The globes are intact. The soft tissue planes of the orbits are maintained. Paranasal Sinuses: Mucosal thickening in the left inferior frontal, ethmoid, sphenoid, and maxillary sinuses, the remaining aerated spaces are clear. Foreign Bodies: No radiopaque foreign bodies. Other Findings: Periapical lucency surrounding the roots of multiple mandibular teeth. IMPRESSION: No acute fracture or traumatic malalignment in the cervical spine. Comminuted, mildly depressed nasal bone fractures. Periodontal disease. Reviewed, dictated and finalized at location K. [facility] [employer]
--- NOTE | ~2023-08-30 | CT_ITS ---
EXAMINATION: CT brain wo con DATE: 08/30/2023 22:31 INDICATION: head injury . TECHNIQUE: Computed tomography (CT) of the head was performed without intravenous contrast. The mA wa s adjusted according to patient size. Iterative reconstruction technique was employed. The dose-lengt h product was 605.33 mGy-cm. COMPARISON: None. FINDINGS: No acute intracranial hemorrhage or extra-axial fluid collection. No hydrocephalus, mass, or herniation. No acute ischemic infarct. Unremarkable dural venous sinus attenuation. No acute skull abnormality. Comminuted, minimally depressed nasal bone fractures. Soft tissue swellin g over the nose and left forehead. Maxillary sphenoid and ethmoid air cell mucosal thickening, the remaining aerated spaces are clear. IMPRESSION: No acute intracranial process. Comminuted, minimally depressed nasal bone fractures. Reviewed, dictated and finalized at location K. GRADER
[2023-08-30 17:46] VITALS: BP 184/96; PULSE 77; RESP 20; TEMP 36.4; O2SAT 100
--- NOTE | 2023-08-30 22:58 | ED.FALL ---
HPI - Fall General Chief Complaint: Fall Stated Complaint: fall, nose lac Time Seen by Provider: 08/30/23 22:22 Source: patient Mode of arrival: ambulatory Limitations: no limitations History of Present Illness HPI Narrative: This is a 67 year old male that presents to the ER after a fall with head injury. Reports he tripped over a cord and hit his head on a couch. Reports a laceration to the bridge of the nose. He is up to date on tetanus. He did not lose consciousness. Denies vision changes, vomiting, or numbness. Related Data Home Medications Medication Instructions Recorded Confirmed aspirin 81 mg tablet,delayed 81 mg PO DAILY 08/06/19 04/17/23 release (Adult Low Dose Aspirin) blood sugar diagnostic #10 ea 08/06/19 04/17/23 ascorbic acid (vitamin C) 500 mg 500 mg PO DAILY 10/17/22 04/17/23 tablet multivitamin (Daily Multi-Vitamin 1 tablet PO DAILY 10/17/22 04/17/23 tablet) zinc 50 mg tablet 50 mg PO DAILY 10/17/22 04/17/23 Allergies Allergy/AdvReac Type Severity Reaction Status Date / Time lisinopril Allergy Severe Anaphylaxis Verified 08/30/23 19:24 Review of Systems Review of Systems: CONSTITUTIONAL: Denies fever EYES: Denies visual changes GASTROINTESTINAL: Denies vomiting NEUROLOGIC: Denies numbness, or weakness. All systems reviewed & are unremarkable except as noted in HPI and below PMFSH Past Medical History Medical History Allergies Elevated PSA Hypertension Normal colonoscopy 10/2019 Obesity Type 2 diabetes mellitus Surgical History Surgical History H/O tooth extraction Hx laparoscopic cholecystectomy Lap bhagravi and open umb hernia repair 10/24/22. Family History Family History Father Malignant neoplasm of prostate Heart attack Social History Social History Smoking packs per day: 2 Smoking cigarettes per day: 40.0 Years smoked: 20 Smoking pack-years: 40.00 Smoking status: Former smoker Tobacco type: cigarettes Smoking end date: 09/25/00 Alcohol intake: unknown Alcohol use details: Pt drinks occasionally. Substance use: never Substance use type: does not use Lack of Transportation: No Lack of Food: Never True Current Housing: I Have Housing Concerned About Future Housing: No Difficulty Paying Gas/Electric Bills: No Difficulty Paying for Meds: No Currently Unemployed: No Education: High School Diploma/GED Difficulty w/ Childcare or Family Care: No Living arrangements: with family Spiritual care concerns: No Exam Narrative: GENERAL: Well-appearing, well-nourished, and in no acute distress. HEAD: Normocephalic. 1cm linear laceration into subcutaneous tissue to the bridge of the nose EYES: PERRLA and EOMI. ENT: Nares clear, no rhinorrhea or epistaxis. Mucous membranes moist. Oropharynx without tonsillar hypertrophy exudate or other lesions. Bilateral TMs pearly saul non-bulging NECK: Supple. No adenopathy or masses. CHEST: Clear to auscultation. No respiratory distress. No wheezes rales or rhonchi HEART: Regular rate and rhythm. No murmur heard. Normal peripheral pulses. EXTREMITIES: Normal range of motion. No edema. Strength equal in bilateral upper and lower extremities (5/5) SKIN: Warm, dry, no rash. NEURO: No focal deficits. Alert and oriented x3. Cranial nerves 2-12 grossly intact PSYCH: Normal mood and affect Course Course Emergency Course: Patient and family updated on workup. Educated on wound care Vital Signs Vital signs: Vital Signs Temperature 97.6 F 08/30/23 17:46 Pulse Rate 77 08/30/23 17:46 Respiratory Rate 20 08/30/23 17:46 Blood Pressure 184/96 H 08/30/23 17:46 Pulse Oximetry 100 08/30/23 17:46 Oxygen Delivery Room Air 08/30/23 17:46 Temperature 97.6 F
[2023-08-31 00:09] VITALS: BP 184/95; PULSE 63; RESP 13; TEMP 36.5; O2SAT 100
== END 2023-08-31 00:29 | disposition home or self-care (01) ==
PROVIDERS: Emergency Provider Physician Assistant; PCP Internal Medicine
DX: S01.21XA Laceration without foreign body of nose, initial encounter (principal); S02.2XXA Fracture of nasal bones, initial encounter for closed fracture; I10 Essential (primary) hypertension; E11.9 Type 2 diabetes mellitus without complications; E66.9 Obesity, unspecified; Z68.34 Body mass index [BMI] 34.0-34.9, adult; Z87.891 Personal history of nicotine dependence; Z90.49 Acquired absence of other specified parts of digestive tract; Z79.82 Long term (current) use of aspirin; Z79.84 Long term (current) use of oral hypoglycemic drugs; K05.6 Periodontal disease, unspecified; W01.190A Fall on same level from slipping, tripping and stumbling with subsequent striking against furniture, initial encounter
CPT/HCPCS: 12011; 70450; 70486; 72125; 99284

== ENCOUNTER 2023-12-23 07:56 | Emergency (ER) | payer MEDICARE, SELFPAY ==
--- NOTE | ~2023-12-23 | XR_ITS ---
XR toe 1st RT min 2V DATE: 12/23/2023 10:35 INDICATION: Swelling of forefoot and great toe TECHNIQUE: 3 views great toe COMPARISON: None FINDINGS: No fracture, dislocation, periosteal reaction or bone destruction of the great toe. IMPRESSION: No significant bony abnormality Reviewed, dictated and finalized at location A.
--- NOTE | ~2023-12-23 | XR_ITS ---
XR foot RT min 3V DATE: 12/23/2023 10:35 INDICATION: Foot swelling. Diabetes. TECHNIQUE: 4 views COMPARISON: None FINDINGS: Mild to moderate plantar and posterior calcaneal enthesopathy. No fracture or dislocation, periosteal reaction or bone destruction is evident. There is no radiographic evidence of osteomyeliti s. Soft tissue calcification is noted in the lower leg. IMPRESSION: Mild to moderate plantar and posterior calcaneal enthesopathy No radiographic evidence of osteomyelitis Reviewed, dictated and finalized at location A.
[2023-12-23 10:04] VITALS: BP 152/67; PULSE 88; RESP 16; TEMP 36.9; O2SAT 97
[2023-12-23] MEDS: CLINDAMYCIN HCL 150 MG CAP 600 MG PO (10:26)
--- NOTE | 2023-12-23 10:56 | ED.EXTPRO ---
HPI - Extremity Problem General Chief complaint: Extremity Problem,Nontraumatic Stated complaint: right foot problem Time Seen by Provider: 12/23/23 10:04 History of Present Illness HPI Narrative: Patient has history of diabetes, was seen recently by herb doctor And treated for right big toe ulcer, had just started using some new the shoe inserts, and Started having some soreness of his foot, and noticed that his big toe looked more red. No systemic symptoms. No fevers or chills nausea or vomiting. Related Data Home Medications Medication Instructions Recorded Confirmed aspirin 81 mg tablet,delayed 81 mg PO DAILY 08/06/19 10/30/23 release (Adult Low Dose Aspirin) blood sugar diagnostic #10 ea 08/06/19 10/30/23 ascorbic acid (vitamin C) 500 mg 500 mg PO DAILY 10/17/22 10/30/23 tablet multivitamin (Daily Multi-Vitamin 1 tablet PO DAILY 10/17/22 10/30/23 tablet) zinc 50 mg tablet 50 mg PO DAILY 10/17/22 10/30/23 Allergies Allergy/AdvReac Type Severity Reaction Status Date / Time lisinopril Allergy Severe Anaphylaxis Verified 12/23/23 07:58 Review of Systems Review of Systems: All systems reviewed & are unremarkable except as noted in HPI and below PMFSH Past Medical History Medical History Allergies Elevated PSA Hypertension Normal colonoscopy 10/2019 Obesity Type 2 diabetes mellitus Surgical History Surgical History H/O tooth extraction Hx laparoscopic cholecystectomy Lap bhargavi and open umb hernia repair 10/24/22. Family History Family History Father Malignant neoplasm of prostate Heart attack Social History Social History Smoking packs per day: 2 Smoking cigarettes per day: 40.0 Years smoked: 20 Smoking pack-years: 40.00 Smoking status: Former smoker Tobacco type: cigarettes Smoking end date: 09/25/00 Alcohol intake: unknown Alcohol use details: Pt drinks occasionally. Substance use: never Substance use type: does not use Lack of Transportation: No Lack of Food: Never True Current Housing: I Have Housing Concerned About Future Housing: No Difficulty Paying Gas/Electric Bills: No Difficulty Paying for Meds: No Currently Unemployed: No Education: High School Diploma/GED Difficulty w/ Childcare or Family Care: No Living arrangements: with family Spiritual care concerns: No Exam Narrative: EXAMINATION OF ORGAN SYSTEMS/BODY AREAS: Constitutional: Vital signs per nursing GENERAL:[No acute distress, non-toxic appearing.] HEAD: Normal with no signs of head trauma. EYES: EOMI, conjunctiva normal ENT: Hearing grossly intact LUNGS: Nonlabored breathing. HEART: [Regular rate and rhythm] ABD: [Soft], [nontender to palpation] EXT: Normal range of motion; small ulcer to R great toe with some surrounding redness; not too tender. redness does not extend past the distal portion of the right great toe. no tenderness to the rest of the foot. SKIN: see above NEURO: [Alert and oriented x 3. No gross focal sensory or strength deficits.] PSYCH: Normal affect Course Vital Signs Vital signs: Vital Signs Temperature 98.4 F 12/23/23 10:04 Pulse Rate 88 12/23/23 10:04 Respiratory Rate 16 12/23/23 10:04 Blood Pressure 152/67 H 12/23/23 10:04 Pulse Oximetry 97 12/23/23 10:04 Temperature 97.9 F 12/23/23 11:25 Pulse Rate 62 12/23/23 11:25 Respiratory Rate 16 12/23/23 11:25 Blood Pressure 136/80 12/23/23 11:25 Pulse Oximetry 97 12/23/23 11:25 MDM - Extremity (Nontraumatic) MDM Narrative Medical decision making narrative: 68-year-old male with diabetes presenting with concern for diabetic foot infection, on exam exam quite benign with good DP pulse, perfusion, the ulcer d
[2023-12-23 11:25] VITALS: BP 136/80; PULSE 62; RESP 16; TEMP 36.6; O2SAT 97
== END 2023-12-23 11:29 | disposition home or self-care (01) ==
PROVIDERS: Emergency Provider Emergency Medicine; PCP Internal Medicine
DX: L08.9 Local infection of the skin and subcutaneous tissue, unspecified (principal); E11.9 Type 2 diabetes mellitus without complications; E66.9 Obesity, unspecified; Z68.34 Body mass index [BMI] 34.0-34.9, adult; Z87.891 Personal history of nicotine dependence; Z79.82 Long term (current) use of aspirin; Z79.84 Long term (current) use of oral hypoglycemic drugs
CPT/HCPCS: 73630; 73660; 99283; A9270

== ENCOUNTER 2024-05-17 09:39 | Outpatient (CLI) | payer MEDICARE, SELFPAY ==
[2024-05-17 14:38] LABS: Hemoglobin A1C 6.6 % (<5.7)
== END 2024-05-17 09:40 | disposition home or self-care (01) ==
LOC: ANHGOSHLAB 09:40
PROVIDERS: PCP Clinical Nurse Specialist; Visit Provider Clinical Nurse Specialist
DX: E11.9 Type 2 diabetes mellitus without complications (principal)
CPT/HCPCS: 36415; 83036

== ENCOUNTER 2024-10-30 08:45 | Outpatient (CLI) | payer MEDICARE, SELFPAY ==
[2024-10-30 14:06] LABS: Basophils Absolute Auto 0.1 K/mm3 (0.0-0.1); Basophils Percent Auto 0.9 % (0.2-1.2); Eosinophils Absolute Auto 0.4 K/mm3 (0-0.3); Eosinophils Percent Auto 4.8 % (0-4.4); Hematocrit 42.7 % (42.0-52.0); Hemoglobin 13.8 g/dL (14.0-18.0); Immature Granulocyte Absolute 0.03 K/mm3 (0.00-0.031); Immature Granulocyte Percent A 0.4 % (0-0.5); Lymphocytes Absolute Auto 1.81 K/mm3 (0.9-3.2); Lymphocytes Percent Auto 22.4 % (18.3-44.2); Mean Corpuscular HGB Conc 32.3 g/dl (32-36); Mean Corpuscular Volume 86.6 fl (80-100); Mean Platelet Volume 11.1 fl (7.4-10.4); Monocytes Absolute Auto 0.6 K/mm3 (0.1-0.6); Monocytes Percent Auto 7.7 % (2.6-8.5); Neutrophils Absolute Auto 5.2 K/mm3 (1.3-6.7); Neutrophils Percent Auto 63.8 % (45.5-73.1); Platelet Count Result 187 k/mm3 (150-375); Red Blood Count 4.93 M/mm3 (4.6-6.20); Red Cell Distribution Width 13.6 % (11.5-14.5); White Blood Count 8.1 K/mm3 (4.5-10.0)
[2024-10-30 16:17] LABS: Microalbumin Urine Random 37.1 mg/L (0-16.7)
[2024-10-30 16:19] LABS: Creatinine Urine 132.7 mg/dL
[2024-10-30 16:30] LABS: Alanine Aminotransferase 68 U/L (6-50); Albumin Level 4.3 g/dL (3.5-5.1); Alkaline Phosphatase 76 U/L (38-126); Anion Gap 11 mmol/L (4-12); Aspartate Amino Transferase 48 U/L (17-59); Bilirubin,Total 0.6 mg/dL (0.2-1.3); Blood Urea Nitrogen 23 mg/dL (9-20); Calcium 9.4 mg/dL (8.4-10.2); Carbon Dioxide 28 mmol/L (22-30); Chloride 100 mmol/L (98-107); Cholesterol 141 mg/dL (0-200); Estimated Glomerular Filt Rate > 60; Glucose 122 mg/dL (65-110); HDL Direct 41 mg/dL; Potassium 4.5 mmol/L (3.4-5.0); Sodium 139 mmol/L (137-145); Triglycerides 134 mg/dL (<150)
[2024-10-30 16:41] LABS: LDL Cholesterol Direct 81 mg/dL
[2024-10-30 17:55] LABS: Hemoglobin A1C 7.1 % (<5.7)
== END 2024-10-30 08:46 | disposition home or self-care (01) ==
LOC: ANHGOSHLAB 08:46
PROVIDERS: PCP Clinical Nurse Specialist; Visit Provider Clinical Nurse Specialist
DX: Z13.228 Encounter for screening for other metabolic disorders (principal); E11.9 Type 2 diabetes mellitus without complications; I10 Essential (primary) hypertension; Z12.5 Encounter for screening for malignant neoplasm of prostate
CPT/HCPCS: 36415; 80053; 80061; 82043; 82607; 83036; 84443; 85025

== ENCOUNTER 2025-03-07 13:06 | Outpatient (CLI) | payer MEDICARE, SELFPAY ==
[2025-03-07 18:16] LABS: Hemoglobin A1C 6.6 % (<5.7)
[2025-03-07 18:17] LABS: Anion Gap 8 mmol/L (4-12); Blood Urea Nitrogen 24 mg/dL (9-20); Calcium 9.5 mg/dL (8.4-10.2); Carbon Dioxide 27 mmol/L (22-30); Chloride 101 mmol/L (98-107); Estimated Glomerular Filt Rate > 60; Glucose 119 mg/dL (65-110); Potassium 4.5 mmol/L (3.4-5.0); Sodium 136 mmol/L (137-145)
== END 2025-03-07 13:07 | disposition home or self-care (01) ==
LOC: ANHGOSHLAB 13:07
PROVIDERS: PCP Clinical Nurse Specialist; Visit Provider Clinical Nurse Specialist
DX: E11.9 Type 2 diabetes mellitus without complications (principal)
CPT/HCPCS: 36415; 80048; 83036

== ENCOUNTER 2025-07-28 08:28 | Outpatient (CLI) | payer MEDICARE, SELFPAY ==
[2025-07-28 13:13] LABS: Alanine Aminotransferase 37 U/L (6-50); Albumin Level 4.6 g/dL (3.5-5.1); Alkaline Phosphatase 69 U/L (38-126); Anion Gap 9 mmol/L (4-12); Aspartate Amino Transferase 68 U/L (17-59); Bilirubin,Total 0.7 mg/dL (0.2-1.3); Blood Urea Nitrogen 19 mg/dL (9-20); Calcium 9.1 mg/dL (8.4-10.2); Carbon Dioxide 29 mmol/L (22-30); Chloride 100 mmol/L (98-107); Estimated Glomerular Filt Rate > 60; Glucose 130 mg/dL (65-110); Potassium 4.3 mmol/L (3.4-5.0); Sodium 138 mmol/L (137-145); Total Protein 7.8 g/dL (6.3-8.2)
[2025-07-28 13:16] LABS: Hemoglobin A1C 6.6 % (<5.7)
[2025-07-28 13:52] LABS: MALB Creatinine Ratio 38.8 mg/g (0-30)
[2025-07-28 14:09] LABS: Vitamin B12 918.0 pg/mL (239-931)
== END 2025-07-28 08:29 | disposition home or self-care (01) ==
LOC: ANHGOSHLAB 08:29
PROVIDERS: PCP Clinical Nurse Specialist; Visit Provider Clinical Nurse Specialist
DX: E11.9 Type 2 diabetes mellitus without complications (principal); I10 Essential (primary) hypertension
CPT/HCPCS: 36415; 80053; 82043; 82607; 83036

== ENCOUNTER 2025-09-04 08:04 | Outpatient (CLI) | payer MEDICARE, SELFPAY ==
[2025-09-04 19:01] LABS: Alanine Aminotransferase 42 U/L (6-50); Albumin Level 4.5 g/dL (3.5-5.1); Alkaline Phosphatase 70 U/L (38-126); Anion Gap 7 mmol/L (4-12); Aspartate Amino Transferase 41 U/L (17-59); Bilirubin,Total 0.7 mg/dL (0.2-1.3); Blood Urea Nitrogen 20 mg/dL (9-20); Calcium 9.6 mg/dL (8.4-10.2); Carbon Dioxide 28 mmol/L (22-30); Chloride 101 mmol/L (98-107); Estimated Glomerular Filt Rate > 60; Glucose 193 mg/dL (65-110); Potassium 4.4 mmol/L (3.4-5.0); Sodium 136 mmol/L (137-145); Total Protein 8.0 g/dL (6.3-8.2)
== END 2025-09-04 08:05 | disposition home or self-care (01) ==
PROVIDERS: PCP Clinical Nurse Specialist; Visit Provider Clinical Nurse Specialist
DX: R74.01 Elevation of levels of liver transaminase levels (principal)
CPT/HCPCS: 36415; 80053